=== PATIENT | male | born 2000 | race Caucasian/White ===

== ENCOUNTER 2018-04-12 03:31 | Emergency (ER) | payer OTHER ==
[~2018-04-12] VITALS: Ht 180.3 cm; Wt 72.6 kg
[2018-04-12] MEDS ORDERED: ORASEP SPRAY30 ML MM (04:42)
[2018-04-12] MEDS ORDERED: IBUPROFEN800 MG PO (04:42)
[2018-04-12] MEDS ORDERED: AMOX-CLAV 875-1 EACH PO (04:42)
== END 2018-04-12 15:51 | disposition home or self-care (01) ==
LOC: ER 03:31
DX: K08.89 Other specified disorders of teeth and supporting structures (principal)